=== PATIENT | male | born 1975 | race Caucasian/White ===

== ENCOUNTER 2016-07-22 20:19 | Emergency (ER) | payer OTHER ==
[2016-07-22] MEDS ORDERED: BACITRACIN 1 APP/PKT PKT TOPICAL ONE (22:34)
--- NOTE | 2016-07-22 22:38 | ER NURSING DOCUMENTATION ---
Nurse's Notes [facility] Name:Ncik Lauren Age:41 yrs Sex:Male :1975 Arrival Date:07/22/2016 Time:20:19 Bed1 Private MD: Diagnosis:Finger Laceration Presentation: 07/22 20:25 Presenting complaint: Patient states: Laceration on left middle finger. Cut on circular 4 saw. Transition of care: Home. Notified ED Physician of Dr. Babin notified. 20:25 Method Of Arrival: Walk In [facility] 20:25 Acuity: ALFREDO 4 [facility] Triage Assessment: 21:00 General: Appears uncomfortable, Behavior is cooperative. Pain: Complains of pain in [facility] palmar aspect of distal phalanx of left middle finger Pain does not radiate. Pain. EENT: No deficits noted. Neuro: Neuro: No deficits noted. Cardiovascular: No deficits noted. Respiratory: No deficits noted. GI: No deficits noted. : No deficits noted. Derm: Skin is healthy with good turgor. Musculoskeletal: No deficits noted. Injury Description: Laceration sustained to palmar aspect of distal phalanx of left middle finger. Historical: - Allergies: environmental allergies; - Home Meds: 1. Prilosec Oral 1 cap once daily - PMHx: GERD; Allergic Reaction (January 01, 2015); - PSHx: HERNIA REPAIR; KNEE SURGERY; - Tetanus: < 10 years. - Ebola Screening: : No symptoms or risks identified at this time. . - Immunization history: Flu Vaccine < 1 year. - Social history: Smoking status: Patient states was never smoker of tobacco. Screenin:25 Infectious Disease Risk None. Abuse screen: denies. Nutritional screening: No deficits [facility] noted. On. Assessment: 20:25 See Triage Assessment done by same RN. Injury Description: Laceration sustained to 4 palmar aspect of distal phalanx of left middle finger is jagged, 0.5 to 2.5 cm long, bleeding moderately. Vital Signs: 20:25 BP 110 / 78; Pulse 94; Resp 17; Temp 98.4; Pulse Ox 98% ; Weight 74.84 kg; Height 5 ft. [facility] (152.40 cm); Pain 3/10; 20:25 Body Mass Index 32.22 (74.84 kg, 152.40 cm) mk4 ED Course: 20:21 Patient arrived in ED. em3 20:25 Allergy Band Placed Arm band placed on Bed in low position Call Light in Reach. Family mk4 accompanied patient. 20:25 Valuables Remains with patient. Door closed. Verbal reassurance given. mk4 20:31 Kee Babin MD is Attending Physician. sc 20:58 Smita Aldridge is Primary Nurse. mk4 21:00 Triage completed. mk4 21:21 Wound care to laceration located on left hand was cleaned with Irrigation Normal Saline mk4 dressed with bacitracin Tube Gauze Patient tolerated well. Administered Medications: 22:35 Drug: Bacitracin Ointment (500 unit/g) 1 application; Route: Topical; Infused Over: 2 mk4 mins; Site: left hand; Outcome: 22:20 Discharge ordered by . sc 22:37 Patient left the ED. mk4 Signatures: Kee Babin MD MD mi Milo Amaral em3 Smita Aldridge mk4
--- NOTE | 2016-07-22 22:38 | ER PHYSICIAN DOCUMENTATION ---
Physician Documentation [facility] Name:Nick Lauren Age:41 yrs Sex:Male :1975 Arrival Date:07/22/2016 Time:20:19 Bed1 Private MD: Kee Livingston Disposition: 07/22/16 22:20 Discharged to Home/Self Care. Impression: Finger Laceration. - Condition is Good. - Discharge Instructions: FINGER LACERATION - LACERATION, Hand. - Medical Reconciliation form form. - Follow up: Emergency Department; When: 7 - 10 days; Reason: Staple/Suture removal. - Problem is new. - Symptoms have improved. HPI: 07/22 21:36 This 41 yrs old Male presents to ER via Walk In with complaints of Laceration sc To Hand - Left middle finger. 21:36 The patient has a laceration related to: doing carpentry, from a knife, occurred at ne home, and there are no complicating factors. The laceration(s) is(are) located on the palmar aspect of distal phalanx of left middle finger. Onset: The symptom(s)/episode began/occurred just prior to arrival. Associated signs and symptoms: The patient has no apparent associated signs or symptoms. Historical: - Allergies: environmental allergies; - Home Meds: 1. Prilosec Oral 1 cap once daily - PMHx: GERD; Allergic Reaction (January 01, 2015); - PSHx: HERNIA REPAIR; KNEE SURGERY; - Tetanus: < 10 years. - Ebola Screening: : No symptoms or risks identified at this time. . - Immunization history: Flu Vaccine < 1 year. - Social history: Smoking status: Patient states was never smoker of tobacco. ROS: 21:38 Constitutional: Negative for fever, chills, and weight loss. sc Eyes: Negative for injury, pain, redness, and discharge. Neck: Negative for injury, pain, and swelling. Back: Negative for injury and pain. 21:38 Neuro: Negative for headache, weakness, numbness, tingling, and seizure. sc 21:38 Skin: Positive for laceration(s). Exam: 21:41 Musculoskeletal/extremity: Extremities: grossly normal except: noted in the palmar sc aspect of distal phalanx of left middle finger: laceration, ROM: no acute changes, Circulation is intact in all extremities. Sensation intact. Constitutional: This is a well developed, well nourished patient who is awake, alert, and in no acute distress. Head/Face: Normocephalic, atraumatic. Neck: Trachea midline, no thyromegaly or masses palpated, and no cervical lymphadenopathy. Supple, full range of motion without nuchal rigidity, or vertebral point tenderness. No meningismus. 21:41 Neuro: Awake and alert, GCS 15, oriented to person, place, time, and situation. Cranial nerves II-XII grossly intact. Motor strength 5/5 in all extremities. Sensory grossly intact. Cerebellar exam normal. Normal gait. 21:41 Skin: injury. Vital Signs: 20:25 BP 110 / 78; Pulse 94; Resp 17; Temp 98.4; Pulse Ox 98% ; Weight 74.84 kg; Height 5 ft. mk4 (152.40 cm); Pain 3/10; 20:25 Body Mass Index 32.22 (74.84 kg, 152.40 cm) mk4 Laceration: 21:42 Wound Repair of 1.5cm ( 0.6in ) subcutaneous laceration to palmar aspect of distal sc phalanx of left middle finger. Skin/tissue flap noted.. Distal neuro/vascular/tendon intact. Anesthesia: Digital block administered with 2 mls of 2% lidocaine. Wound prep: Simple cleansing. Skin closed with 5 5-0 Ethilon using Horizontal mattress sutures. Dressed with tube gauze. Patient tolerated well. MDM: 20:31 Patient medically screened. sc 21:46 Differential diagnosis: superficial laceration. Data reviewed: vital signs, nurses sc notes, and as a result, I will discharge patient. Counseling: I had a detailed discussion with the patient and/or guardian regarding: the historical points, exam findings, and any diagnostic results supporting the discharge/admit diagnosis, the need for outpatient follow up, to return to the emergency department if symptoms worsen or persist or if there are any questions or concerns that arise at home. Dispensed Medications: 22:35 Drug: Bacitracin Ointment (500 unit/g) 1 application; Route: Topical; Infused Over: 2 mk4 mins; Site: left hand; Signatures: Kee Babin MD MD ne Smita Aldridge mk4
== END 2016-07-22 22:38 | disposition home or self-care (01) ==
LOC: ER 20:19
DX: S61.213A Laceration without foreign body of left middle finger without damage to nail, initial encounter (principal); W26.0XXA Contact with knife, initial encounter; Y92.019 Unspecified place in single-family (private) house as the place of occurrence of the external cause; Y93.H3 Activity, building and construction
CPT/HCPCS: 12041; 99283